=== PATIENT | male | born 1945 | race Caucasian/White ===

== ENCOUNTER 2017-07-06 11:24 | Outpatient (CLI) | payer MEDICARE, BC ==
[2017-07-06 12:06] LABS: BASOPHILS % (AUTO) 0.7 %; EOSINOPHILS % (AUTO) 0.7 %; HCT - HEMATOCRIT 41.9 % (42.0-52.0); LYMPHOCYTES # (AUTO) 1.8 10^3/uL (1.5-3.5); LYMPHOCYTES % (AUTO) 25.7 %; MEAN CORPUSCULAR HEMOGLOBIN 28.6 pg (27.0-31.0); MEAN CORPUSCULAR HGB CONC 33.5 g/dL (32.0-36.0); MEAN CORPUSCULAR VOLUME 85.4 fL (80.0-94.0); MEAN PLATELET VOLUME 7.1 fL (7.4-11.4); MONOCYTES # (AUTO) 0.6 10^3/uL (0.0-1.0); MONOCYTES % (AUTO) 8.3 %; NEUTROPHILS # (AUTO) 4.6 10^3/uL (1.5-6.6); NEUTROPHILS % (AUTO) 64.6 %; NUCLEATED RED BLOOD CELLS AUTO 0.1 /100WBC; RED BLOOD COUNT 4.91 10^6/uL (4.70-6.10); RED CELL DISTRIBUTION WIDTH 14.9 % (12.0-15.0); UNCORRECTED WHITE BLOOD COUNT 7.1 x10^3/uL; WHITE BLOOD COUNT 7.1 x10^3/uL (4.8-10.8)
[2017-07-06 12:34] LABS: ALBUMIN/GLOBULIN RATIO 1.2 (1.0-2.2); CALCIUM 9.1 mg/dL (8.5-10.3); CREATININE 1.3 mg/dL (0.6-1.2); POTASSIUM 3.9 mmol/L (3.5-5.0); TOTAL PROTEIN 7.5 g/dL (6.7-8.2)
[2017-07-06 12:36] LABS: PT - PROTHROMBIN TIME 11.5 secs (9.9-12.6)
== END 2017-07-06 11:25 | disposition home or self-care (01) ==
LOC: LAB 11:24
PROVIDERS: ATTEND Internal Medicine Cardiovascular Disease
DX: Z79.899 Other long term (current) drug therapy (principal)
CPT/HCPCS: 36415; 80053; 85025; 85610

== ENCOUNTER 2017-07-10 13:55 | Outpatient (CLI) | payer MEDICARE, BC | END 2017-07-10 13:56 | disposition home or self-care (01) | LOC: DI 13:55 | PROVIDERS: ATTEND Internal Medicine Cardiovascular Disease | DX: I50.9 Heart failure, unspecified (principal) | CPT/HCPCS: 93306 ==

== ENCOUNTER 2019-10-10 10:31 | Outpatient (CLI) | payer MEDICARE, BC ==
[2019-10-10 10:51] LABS: CALCIUM 9.2 mg/dL (8.5-10.3); CREATININE 1.3 mg/dL (0.6-1.2)
== END 2019-10-10 10:32 | disposition home or self-care (01) ==
LOC: LAB 10:31
PROVIDERS: ATTEND Internal Medicine Cardiovascular Disease
DX: I48.91 Unspecified atrial fibrillation (principal)
CPT/HCPCS: 36415; 80048

== ENCOUNTER 2019-10-21 10:31 | Outpatient (CLI) | payer MEDICARE, BC | END 2019-10-21 10:32 | disposition home or self-care (01) | LOC: DI 10:31 | PROVIDERS: ATTEND Internal Medicine Cardiovascular Disease | DX: I48.91 Unspecified atrial fibrillation (principal) | CPT/HCPCS: 93306 ==

== ENCOUNTER 2020-08-03 11:10 | Outpatient (CLI) | payer MEDICARE, BC ==
--- NOTE | 2020-08-03 15:47 | XRAY Report ---
PROCEDURE: Hip w/Pelvis 2-3V LT INDICATIONS: LEFT HIP PAIN TECHNIQUE: AP pelvis with lateral view(s) of the left hip(s). COMPARISON: None. FINDINGS: Bones: No fractures or dislocations. Pelvic ring appears intact. No suspicious bony lesions. Mild bilateral degenerative hip osteoarthritis. No erosions. Minimal periarticular osteophytes are presen t. Degenerative changes are present within the lower lumbar spine. Soft tissues: The visualized bowel gas pattern is normal. No suspicious soft tissue calcifications. IMPRESSION: Mild bilateral hip osteoarthritis. Reviewed by: Diya Hankins MD on 08/03/2020 3:45 PM PDT Approved by: Diya Hankins MD on 08/03/2020 3:45 PM PDT Station ID: [id number]
== END 2020-08-03 11:11 | disposition home or self-care (01) ==
LOC: DI 11:10
PROVIDERS: ATTEND Internal Medicine
DX: M16.0 Bilateral primary osteoarthritis of hip (principal)

== ENCOUNTER 2022-08-10 10:52 | Outpatient (CLI) | payer MEDICARE, BC ==
[2022-08-10 11:04] LABS: BILIRUBIN,URINE NEGATIVE (NEGATIVE); GLUCOSE, URINE (UA) NEGATIVE (NEGATIVE); KETONES,URINE (UA) NEGATIVE (NEGATIVE); LEUKOCYTE ESTERASE, URINE NEGATIVE (NEGATIVE); NITRITE,URINE NEGATIVE (NEGATIVE); OCCULT BLOOD,URINE LARGE (NEGATIVE); PROTEIN,URINE NEGATIVE (NEGATIVE); UROBILINOGEN,URINE 0.2 (NORMAL) E.U./dL (NORMAL)
[2022-08-10 11:16] LABS: BACTERIA,URINE Rare /HPF (None Seen); CLARITY,URINE SL. CLOUDY (CLEAR); RBC,URINE TNTC /HPF (0-5); SQUAMOUS EPITHELIAL CELL,UR RARE Squamous (<= Few); WBC,URINE 0-3 /HPF (0-3)
[2022-08-10 11:17] LABS: CREATININE 1.4 mg/dL (0.6-1.2)
== END 2022-08-10 10:53 | disposition home or self-care (01) ==
LOC: LAB 10:52
PROVIDERS: ATTEND Physician Assistant Medical
DX: R31.0 Gross hematuria (principal); Z85.51 Personal history of malignant neoplasm of bladder
CPT/HCPCS: 36415; 81001; 82565; 84520; 87086

== ENCOUNTER 2022-08-11 13:46 | Outpatient (CLI) | payer MEDICARE, BC ==
[2022-08-11] MEDS ORDERED: iohexoL-300 100 ML VIAL ONE (13:53)
[2022-08-11] MEDS ORDERED: iohexoL-300 100 ML VIAL IVP ONE (14:46)
--- NOTE | 2022-08-11 17:37 | CT Report ---
PROCEDURE: IVP INDICATIONS: HIST OF BLADDER CA CONTRAST: 140ml omni 300 TECHNIQUE: After the administration of oral and intravenous contrast, 5 mm thick sections acquired from the diap hragms to the symphysis. 5 mm thick coronal and sagittal reformats were acquired. For radiation dos e reduction, the following was used: automated exposure control, adjustment of mA and/or kV accordin g to patient size. COMPARISON: None. FINDINGS: Image quality: Excellent. Lung bases: No acute consolidations, effusions, or suspicious lung nodules. Heart is at the upper kent its of normal in size with aortic valvular calcification. Urinary system: There is a large solid mass arising from the lower pole of the left kidney and extend ing cranially to involve the lower pole collecting system and renal pelvis. It measures roughly 8.6 x 6.1 x 6.4 cm. There is no visible calyceal obstruction and no hydronephrosis in the remainder the ki dney. The ureter appears normal. The right kidney and right collecting system are normal aside from a simple right upper pole cyst. Solid organs: Liver and spleen are normal in size and enhancement. Gallbladder is partially decompr essed and there are no stones. Biliary system is non dilated. Pancreas enhances normally. No adren al nodules. Peritoneum and bowel: Bowel loops demonstrate normal wall thickness and caliber. No free fluid or a ir. Nodes and vessels: Normal caliber retroperitoneal/periaortic lymph nodes present near the level of t he left renal vein. Left renal vein is retroaortic. No retroperitoneal or mesenteric adenopathy by si ze criteria. Aorta and inferior vena cava are normal in size. Abdominal wall: Tiny fat-containing umbilical hernia.. Pelvis: No free pelvic fluid. Moderate prostatomegaly. Urinary bladder wall appears normal. Along the anterior margin of the urinary bladder wall in a transverse fashion there is tubular fat density wit h peripheral calcification. It appears iatrogenic. There are borderline bilateral inguinal lymph node s. No bulky pelvic adenopathy. Bones: No vertebral body compression fractures. Probable bone island in the left iliac crest. No sumner spicious lytic lesions to suggest osseous metastatic disease. IMPRESSION: 1. 8.6 cm left renal mass from the mid to lower pole suspicious of malignancy. 2. No significant left perirenal or retroperitoneal adenopathy. 3. No evidence of osseous metastatic disease. 4. Moderate prostatomegaly. 5. Probable postsurgical or treatment changes anterior to the otherwise normal-appearing urinary blad rob. Reviewed by: Carol Lee MD on 08/11/2022 4:36 PM DIEGO Approved by: Carol Lee MD on 08/11/2022 4:36 PM DIEGO Station ID: [id number]
== END 2022-08-11 13:47 | disposition home or self-care (01) ==
LOC: DI 13:46
PROVIDERS: ATTEND Physician Assistant Medical
DX: N28.89 Other specified disorders of kidney and ureter (principal); N40.0 Benign prostatic hyperplasia without lower urinary tract symptoms; Z85.51 Personal history of malignant neoplasm of bladder
CPT/HCPCS: 74178; Q9967

== ENCOUNTER 2022-08-12 12:19 | Outpatient (CLI) | payer MEDICARE, BC ==
--- NOTE | 2022-08-12 15:09 | Ultrasound Report ---
PROCEDURE: Duplex Ext Veins Right INDICATIONS: EDEMA TECHNIQUE: Real-time imaging, as well as color and pulse Doppler interrogation, were performed of the lower extr emity deep veins from the inguinal ligament to the popliteal fossa. COMPARISON: None. FINDINGS: The deep veins are normally compressible, and free of intraluminal thrombus. Color and pu lse Doppler demonstrate normal phasic intraluminal flow. There is normal augmentation response to di stal compression maneuver. A posterior tibial service technician vein is seen at the area of interest in the right calf with overlying s uperficial venous varicosity. IMPRESSION: 1.No sonographic evidence of deep venous thrombosis in the right lower extremity. 2.Subcutaneous varicose vein at the area of interest in the mid calf. Reviewed by: Rios Colon MD on 08/12/2022 3:08 PM PDT Approved by: Rios Colon MD on 08/12/2022 3:08 PM PDT Station ID: [id number]
== END 2022-08-12 12:20 | disposition home or self-care (01) ==
LOC: DI 12:19
PROVIDERS: ATTEND Internal Medicine
DX: R60.0 Localized edema (principal); I83.91 Asymptomatic varicose veins of right lower extremity

== ENCOUNTER 2022-09-20 09:37 | Outpatient (CLI) | payer MEDICARE, BC | END 2022-09-20 09:38 | disposition home or self-care (01) | LOC: RT 09:37 | PROVIDERS: ATTEND Internal Medicine Cardiovascular Disease | DX: I48.91 Unspecified atrial fibrillation (principal) | CPT/HCPCS: 93005 ==

== ENCOUNTER 2022-10-14 15:24 | Outpatient (CLI) | payer MEDICARE, BC ==
[2022-10-14 15:48] LABS: CALCIUM 9.2 mg/dL (8.5-10.3); CREATININE 1.2 mg/dL (0.6-1.2); POTASSIUM 4.3 mmol/L (3.5-5.0)
== END 2022-10-14 15:25 | disposition home or self-care (01) ==
LOC: LAB 15:24
PROVIDERS: ATTEND Internal Medicine Cardiovascular Disease
DX: I42.6 Alcoholic cardiomyopathy (principal)
CPT/HCPCS: 36415; 80048

== ENCOUNTER 2022-12-21 09:17 | Outpatient (CLI) | payer MEDICARE, BC | END 2022-12-21 09:18 | disposition home or self-care (01) | LOC: DI 09:17 | PROVIDERS: ATTEND Internal Medicine Cardiovascular Disease | DX: I50.9 Heart failure, unspecified (principal); I51.7 Cardiomegaly | CPT/HCPCS: 93306 ==

== ENCOUNTER 2023-01-06 14:10 | Outpatient (CLI) | payer MEDICARE, BC ==
[2023-01-06 14:27] LABS: CREATININE 1.8 mg/dL (0.6-1.2); POTASSIUM 4.6 mmol/L (3.5-5.0)
== END 2023-01-06 14:11 | disposition home or self-care (01) ==
LOC: LAB 14:10
PROVIDERS: ATTEND Internal Medicine Cardiovascular Disease
DX: I10 Essential (primary) hypertension (principal)
CPT/HCPCS: 36415; 80048

== ENCOUNTER 2023-01-20 13:27 | Outpatient (CLI) | payer MEDICARE, BC ==
[2023-01-20 13:44] LABS: BASOPHILS % (AUTO) 0.6 %; EOSINOPHILS # (AUTO) 0.1 10^3/uL (0.0-0.7); EOSINOPHILS % (AUTO) 1.9 %; HCT - HEMATOCRIT 43.2 % (42.0-52.0); HGB - HEMOGLOBIN 13.8 g/dL (14.0-18.0); LYMPHOCYTES # (AUTO) 0.7 10^3/uL (1.5-3.5); LYMPHOCYTES % (AUTO) 14.2 %; MEAN CORPUSCULAR HEMOGLOBIN 28.2 pg (27.0-31.0); MEAN CORPUSCULAR HGB CONC 31.9 g/dL (32.0-36.0); MEAN CORPUSCULAR VOLUME 88.2 fL (80.0-94.0); MEAN PLATELET VOLUME 8.9 fL (7.4-11.4); MONOCYTES # (AUTO) 0.5 10^3/uL (0.0-1.0); MONOCYTES % (AUTO) 9.9 %; NEUTROPHILS # (AUTO) 3.5 10^3/uL (1.5-6.6); PLT - PLATELET COUNT 240 10^3/uL (130-450); RED CELL DISTRIBUTION WIDTH 14.6 % (12.0-15.0); WHITE BLOOD COUNT 4.7 x10^3/uL (4.8-10.8)
[2023-01-20 13:50] LABS: ALBUMIN 2.3 g/dL (3.2-5.5); ALBUMIN/GLOBULIN RATIO 0.9 (1.0-2.2); BILIRUBIN,TOTAL 0.7 mg/dL (0.2-1.0); CALCIUM 8.3 mg/dL (8.5-10.3); CREATININE 1.4 mg/dL (0.6-1.2); PHOSPHORUS 3.9 mg/dL (2.5-4.6); POTASSIUM 4.6 mmol/L (3.5-5.0); TOTAL PROTEIN 4.9 g/dL (6.7-8.2)
== END 2023-01-20 13:28 | disposition home or self-care (01) ==
LOC: LAB.R 13:27
PROVIDERS: ATTEND Internal Medicine
DX: E43 Unspecified severe protein-calorie malnutrition (principal); J94.0 Chylous effusion; I89.8 Other specified noninfective disorders of lymphatic vessels and lymph nodes; C64.2 Malignant neoplasm of left kidney, except renal pelvis; T81.89XA Other complications of procedures, not elsewhere classified, initial encounter; Z79.899 Other long term (current) drug therapy
CPT/HCPCS: 80053; 83735; 84100; 85025

== ENCOUNTER 2023-01-20 14:37 | Emergency (ER) | payer MEDICARE, BC ==
--- NOTE | 2023-01-20 15:35 | ED Physician Documentation ---
History of Present Illness - Stated complaint Stated Complaint: SWOLLEN ARM - Chief complaint Chief Complaint: General - History obtained from History obtained from: Patient, Family - History of Present Illness Pain level max: 0 Pain level now: 0 - Additonal information Additional information: 77-year-old male presents to the emergency department stating he has had a PICC line in place for the past 1 week. He states that he went home from the [facility] last night. He has a drain in his right lower abdomen. He states that the infusion nurse came to start his TPN today and his right hand was swollen, they called his doctor and were sent here for ultrasound to rule out DVT. The swelling in the hand has now resolved. Patient's states that yesterday his forearm was swollen but that has resolved as well. Patient is currently asymptomatic. No fevers. No chills. No pain. The PICC line has been used for the past 1 week with no issues Review of Systems Constitutional: denies: Fever, Chills GI: denies: Vomiting, Diarrhea Skin: denies: Rash Musculoskeletal: denies: Neck pain, Back pain Neurologic: denies: Headache PD PAST MEDICAL HISTORY - Past Medical History Cardiovascular: Congestive heart failure, Hypertension, Atrial flutter Respiratory: Sleep apnea, CPAP use Neuro: None Endocrine/Autoimmune: None GI: GERD, Ulcers : Benign prostate hypertrophy, Nocturia HEENT: Chronic vision loss Psych: Depression, Anxiety Musculoskeletal: Osteoarthritis Derm: Rosacea - Past Surgical History General: Gastric surgery Ortho: Knee replacement HEENT: Cataracts - Present Medications Home Medications: Ambulatory Orders Medication Instructions Recorded Confirmed Multivitamin [Multivitamins] 1 tab PO DAILY 02/18/16 01/20/23 Tamsulosin [Flomax] 0.4 mg PO HS 02/18/16 01/20/23 [id number] CD [Cardizem Cd] 360 mg PO DAILY PM 02/18/16 01/20/23 Cholecalciferol [Vitamin D3] 25 mcg PO DAILY 12/12/22 01/20/23 Rivaroxaban [Xarelto] 20 mg PO HS 12/12/22 01/20/23 Furosemide [Lasix] 1 tab PO DAILY PRN 12/14/22 01/20/23 Spironolactone [Aldactone] 25 mg PO DAILY 01/20/23 01/20/23 lisinopriL [Zestril] 5 mg PO DAILY 01/20/23 01/20/23 - Allergies Allergies/Adverse Reactions: Allergies Allergy/AdvReac Type Severity Reaction Status Date / Time No Known Drug Allergies Allergy Verified 01/20/23 15:36 - Social History Does the pt smoke?: Yes Smoking Status: Former smoker Does the pt drink ETOH?: Yes Does the pt have substance abuse?: No - Immunizations Immunizations are current?: No Immunizations: TDAP >10years/unknown - POLST POLST Status: Full Code PD ED PE NORMAL - Vitals Vital signs reviewed: Yes - General General: Alert and oriented X 3, No acute distress - HEENT HEENT: Moist mucous membranes - Neck Neck: Supple, no meningeal sign - Cardiac Cardiac: RRR, Strong equal pulses - Respiratory Respiratory: No respiratory distress, Clear bilaterally - Abdomen Abdomen: Soft, Non tender, Non distended, Other (drain in R L) - Derm Derm: Warm and dry - Extremities Extremities: Other (R UE - No visible swelling. No difference in temperature between the right and left upper extremities. PICC line is in place. No signs of infection. Dressing is clean. Full range of motion of the arm without pain. Neurovascular intact.) - Neuro Neuro: Alert and oriented X 3 - Psych Psych: Normal mood, Normal affect Results - Vitals Vitals: Vital Signs - 24 hr 01/20/23 01/20/23 01/20/23 14:48 15:03 15:35 Temperature 35.7 C L Heart Rate 88 70 66 Respiratory 16 13 14 Rate Blood Pressure 75/53 L 94/56 L 79/48 L O2 Saturation 100 100 97 01/20/23 01/20/23 16:04 16:29 Temperature Heart Rate 62 62 Respiratory 12 16 Rate Blood Pressure 100/49 L 100/49 L O2 Saturation 100 100 Oxygen O2 Source Room air - Rads (name of study) Duplex ultrasound right upper extremity Relevant Findings:: Final report received, See rad report PD Medical Decision Making - ED course Complexity details: reviewed results, re-evaluated patient, considered differential, d/w patient, d/w family ED course: 77-year-old male has a nonocclusive thrombus in the right upper extremity around the PICC line. He had been off Xarelto for the surgery, restarted at last night. We will have him continue Xarelto and have him follow-up with his doctor for further care. No chest pain. No shortness of breath. No evidence of infection. Patient counseled regarding signs and symptoms for which I believe and urgent re-evaluation would be necessary. Patient with good understanding of and agreement to plan and is comfortable going home at this time This document was made in part using voice recognition software. While efforts are made to proofread this document, sound alike and grammatical errors may occur. Patient is hypotensive, he states this is not unusual for him since the surgery. He is asymptomatic with this. He will restart his TPN when he gets home. Departure - Departure Disposition: , Self Care Clinical Impression: Non-occlusive thrombus Condition: Good Instructions: ED DVT Follow-Up: Maddison Tee MD [Provider Admit Priv/Credential] - Within 1 week Comments: On your ultrasound there is a clot around the PICC line, but there is still blood flow going around the area. As you have restarted your anticoagulation last night, we will have you continue your anticoagulation and follow-up with your doctor for further care. You can continue to use the PICC line. Please return if you worsen. Discharge Date/Time: 01/20/23 16:31
--- OUTSIDE RECORDS SUMMARY | 2023-01-20 15:36 | EXTERNAL MEDICAL SUMMARY RPT | Continuity of Care Document ---
:1945 Author Organization [facility] Address [address] [place] [address] Phone Allergies No information. Encounters No information. Functional Status No information. Immunizations No information. Medications No information. Problems date description facility 2022-12-10 12:36 Other specified disorders of [facility] Procedures No information. Results/Labs test date author facility value unit interpret ation Result panel 1 (unknown) (no date) (unknown) (unknown) 509 mg/dl 14552 -3 (unknown) (no date) (unknown) (unknown) 509 mg/dl (unkn own) Result panel 2 (unknown) (no date) (unknown) (unknown) (no value) (units (un known) unknown) (unknown) (no date) (unknown) (unknown) No WBC seen (units (u nknown) unknown) (unknown) (no date) (unknown) (unknown) No cells or (units (u nknown) organisms seen unknown) (unknown) (no date) (unknown) (unknown) No cells or (units (u nknown) organisms seen unknown) Result panel 3 (unknown) (no date) (unknown) (unknown) (no value) (units (un known) unknown) (unknown) (no date) (unknown) (unknown) No WBC seen (units (u nknown) unknown) (unknown) (no date) (unknown) (unknown) No cells or (units (u nknown) organisms seen unknown) (unknown) (no date) (unknown) (unknown) No cells or (units (u nknown) organisms seen unknown) Result panel 4 (unknown) (no date) (unknown) (unknown) (no value) (units (un known) unknown) (unknown) (no date) (unknown) (unknown) No WBC seen (units (u nknown) unknown) (unknown) (no date) (unknown) (unknown) No cells or (units (u nknown) organisms seen unknown) (unknown) (no date) (unknown) (unknown) No cells or (units (u nknown) organisms seen unknown) (unknown) (no date) (unknown) (unknown) No growth. (units (un known) unknown) Result panel 5 (unknown) (no (unknown) (unknown) (no value) (units (unk nown) date) unknown) (unknown) (no (unknown) (unknown) DIDiphtheroids (units (unknown) date) unknown) (unknown) (no (unknown) (unknown) No Further (units (unk nown) date) Workup unknown) (unknown) (no (unknown) (unknown) No WBC seen (units (un known) date) unknown) (unknown) (no (unknown) (unknown) No cells or (units (un known) date) organisms seen unknown) (unknown) (no (unknown) (unknown) No cells or (units (un known) date) organisms seen unknown) (unknown) (no (unknown) (unknown) SCANT (units (unkno wn) date) unknown) Result panel 6 (unknown) (no (unknown) (unknown) (no value) (units (unk nown) date) unknown) (unknown) (no (unknown) (unknown) DIDiphtheroids (units (unknown) date) unknown) (unknown) (no (unknown) (unknown) No Further (units (unk nown) date) Workup unknown) (unknown) (no (unknown) (unknown) No WBC seen (units (un known) date) unknown) (unknown) (no (unknown) (unknown) No cells or (units (un known) date) organisms seen unknown) (unknown) (no (unknown) (unknown) No cells or (units (un known) date) organisms seen unknown) (unknown) (no (unknown) (unknown) No growth. (units (unk nown) date) unknown) (unknown) (no (unknown) (unknown) SCANT (units (unkno wn) date) unknown) Result panel 7 (unknown) (no (unknown) (unknown) (no value) (units (unk nown) date) unknown) (unknown) (no (unknown) (unknown) DIDiphtheroids (units (unknown) date) unknown) (unknown) (no (unknown) (unknown) No Further (units (unk nown) date) Workup unknown) (unknown) (no (unknown) (unknown) No WBC seen (units (un known) date) unknown) (unknown) (no (unknown) (unknown) No cells or (units (un known) date) organisms seen unknown) (unknown) (no (unknown) (unknown) No cells or (units (un known) date) organisms seen unknown) (unknown) (no (unknown) (unknown) No growth. (units (unk nown) date) unknown) (unknown) (no (unknown) (unknown) SCANT (units (unkno wn) date) unknown) Result panel 8 (unknown) (no date) (unknown) (unknown) 509 (units unknown) (unknown) (unknown) (no date) (unknown) (unknown) 509 (units unknown) (unknown) Social History No information. Vital Signs No information.
[2023-01-20 16:05] VITALS: BP 100/49
--- NOTE | 2023-01-20 16:43 | Ultrasound Report ---
PROCEDURE: Duplex Ext Veins Right INDICATIONS: RUE swelling with PICC line TECHNIQUE: Real-time imaging, as well as color and pulse Doppler interrogation, were performed of the upper extr emity deep veins. COMPARISON: None. FINDINGS: With a right upper extremity, nonocclusive thrombus can be seen involving the right subclav brenda vein as well as the basilic vein. The superficial veins demonstrate no thrombus. IMPRESSION: Nonocclusive deep venous thrombosis seen involving the right subclavian vein and the bas ilic vein, along the length of the PICC line. Note: Concordant preliminary findings given by the machine accountant upon the completion of the examination to Dr. Argueta at 4:00 PM on 01/20/2023. Reviewed by: Carlton Narayan MD on 01/20/2023 3:42 PM DIEGO Approved by: Carlton Narayan MD on 01/20/2023 3:42 PM DIEGO Station ID: [id number]
== END 2023-01-20 16:31 | disposition home or self-care (01) ==
LOC: ED 14:37
DX: I82.B11 Acute embolism and thrombosis of right subclavian vein (principal); I95.9 Hypotension, unspecified; Z87.891 Personal history of nicotine dependence; Z95.9 Presence of cardiac and vascular implant and graft, unspecified; E43 Unspecified severe protein-calorie malnutrition; J94.0 Chylous effusion; I89.8 Other specified noninfective disorders of lymphatic vessels and lymph nodes; C64.2 Malignant neoplasm of left kidney, except renal pelvis; T81.89XA Other complications of procedures, not elsewhere classified, initial encounter; Z79.899 Other long term (current) drug therapy
CPT/HCPCS: 80053; 83735; 84100; 85025; 99283; 99284

== ENCOUNTER 2023-02-20 15:47 | Outpatient (CLI) | payer MEDICARE, BC ==
[2023-02-20 16:09] LABS: BASOPHILS % (AUTO) 0.3 %; EOSINOPHILS # (AUTO) 0.1 10^3/uL (0.0-0.7); EOSINOPHILS % (AUTO) 1.4 %; HCT - HEMATOCRIT 37.9 % (42.0-52.0); HGB - HEMOGLOBIN 12.4 g/dL (14.0-18.0); LYMPHOCYTES # (AUTO) 0.7 10^3/uL (1.5-3.5); LYMPHOCYTES % (AUTO) 10.7 %; MEAN CORPUSCULAR HEMOGLOBIN 28.4 pg (27.0-31.0); MEAN CORPUSCULAR HGB CONC 32.7 g/dL (32.0-36.0); MEAN CORPUSCULAR VOLUME 86.9 fL (80.0-94.0); MEAN PLATELET VOLUME 9.1 fL (7.4-11.4); MONOCYTES # (AUTO) 0.6 10^3/uL (0.0-1.0); MONOCYTES % (AUTO) 8.2 %; NEUTROPHILS # (AUTO) 5.4 10^3/uL (1.5-6.6); NEUTROPHILS % (AUTO) 78.1 %; PLT - PLATELET COUNT 306 10^3/uL (130-450); RED BLOOD COUNT 4.36 10^6/uL (4.70-6.10); RED CELL DISTRIBUTION WIDTH 15.2 % (12.0-15.0); WHITE BLOOD COUNT 6.9 x10^3/uL (4.8-10.8)
[2023-02-20 16:14] LABS: ALBUMIN 1.9 g/dL (3.2-5.5); ALBUMIN/GLOBULIN RATIO 0.7 (1.0-2.2); BILIRUBIN,TOTAL 0.6 mg/dL (0.2-1.0); CALCIUM 7.8 mg/dL (8.5-10.3); CREATININE 1.7 mg/dL (0.6-1.2); CRP - C-REACTIVE PROTEIN 3.6 mg/dL (0-1.0); MAGNESIUM 1.8 mg/dL (1.7-2.8); PHOSPHORUS 3.3 mg/dL (2.5-4.6); POTASSIUM 4.2 mmol/L (3.5-5.0); TOTAL PROTEIN 4.8 g/dL (6.7-8.2)
== END 2023-02-20 15:48 | disposition home or self-care (01) ==
LOC: LAB.R 15:47
PROVIDERS: ATTEND Internal Medicine
DX: E43 Unspecified severe protein-calorie malnutrition (principal); J94.0 Chylous effusion; I89.0 Lymphedema, not elsewhere classified; C64.2 Malignant neoplasm of left kidney, except renal pelvis; C67.9 Malignant neoplasm of bladder, unspecified; T81.89XA Other complications of procedures, not elsewhere classified, initial encounter; Z79.899 Other long term (current) drug therapy
CPT/HCPCS: 80053; 83735; 84100; 85025; 86140

== ENCOUNTER 2023-02-27 12:23 | Outpatient (CLI) | payer MEDICARE, BC ==
[2023-02-27 13:04] LABS: BUN - BLOOD UREA NITROGEN 10 mg/dL (6-20); CALCIUM 8.3 mg/dL (8.5-10.3); CARBON DIOXIDE - CO2 25 mmol/L (21-32); CHLORIDE 102 mmol/L (101-111); CREATININE 1.7 mg/dL (0.6-1.2); GFR - MDRD 39 (>89); GLUCOSE 93 mg/dL (70-100); IONIZED CALCIUM IF INDICATED YES; POTASSIUM 3.6 mmol/L (3.5-5.0); SODIUM 136 mmol/L (135-145)
[2023-02-27 13:08] LABS: CALCIUM, IONIZED 1.1 mmol/L (1.15-1.33); VBG PH 7.427 (7.31-7.41)
== END 2023-02-27 12:24 | disposition home or self-care (01) ==
LOC: LAB 12:23
PROVIDERS: ATTEND Urology
DX: I50.20 Unspecified systolic (congestive) heart failure (principal); L76.82 Other postprocedural complications of skin and subcutaneous tissue
CPT/HCPCS: 36415; 80048; 82330

== ENCOUNTER 2023-06-22 09:30 | Outpatient (CLI) | payer MEDICARE, BC | END 2023-06-22 09:31 | disposition home or self-care (01) | LOC: DI 09:30 | PROVIDERS: ATTEND Internal Medicine | DX: I50.9 Heart failure, unspecified (principal); I35.0 Nonrheumatic aortic (valve) stenosis; I51.7 Cardiomegaly | CPT/HCPCS: 93306 ==

== ENCOUNTER 2023-10-12 16:46 | Outpatient (CLI) | payer MEDICARE, BC ==
--- NOTE | 2023-10-12 18:55 | Ultrasound Report ---
PROCEDURE: Duplex Ext Veins Left INDICATIONS: LOCALIZED EDEMA TECHNIQUE: Real-time imaging, as well as color and pulse Doppler interrogation, were performed of the lower extr emity deep veins from the inguinal ligament to the popliteal fossa. Attempted visualization of the ca lf veins was performed. COMPARISON: None. FINDINGS: The deep veins are normally compressible, and free of intraluminal thrombus. Color and pu lse Doppler demonstrate normal phasic intraluminal flow. There is normal augmentation response to di stal compression maneuver. Subcutaneous edema in the posterior calf is noted. IMPRESSION: 1. No DVT in the left lower extremity. 2. Preliminary results given by the soft work cigar machine operator to the ordering provider immediately following the st udy. Reviewed by: Carol Lee MD on 10/12/2023 6:53 PM PST Approved by: Carol Lee MD on 10/12/2023 6:53 PM PST Station ID: [id number]
== END 2023-10-12 16:47 | disposition home or self-care (01) ==
LOC: DI 16:46
PROVIDERS: ATTEND Internal Medicine
DX: R60.0 Localized edema (principal)

== ENCOUNTER 2024-03-12 07:50 | Outpatient (CLI) | payer MEDICARE, BC ==
[2024-03-12] MEDS ORDERED: iohexoL-300 100 ML VIAL ONE (07:55)
[2024-03-12] MEDS ORDERED: iohexoL-300 150 ML BOTTLE ONE (08:26)
[2024-03-12] MEDS: iohexoL-300 150 ML BOTTLE IVP ONE (14:55)
--- NOTE | 2024-03-12 22:25 | CT Report ---
PROCEDURE: IVP INDICATIONS: BLADDER CA, RENAL CA CONTRAST: Omni 300 140ml TECHNIQUE: A [address] of the abdomen and pelvis was performed. Non-contrast and contrast images were recorded and evaluated at appropriate window settings. Images were recorded and evaluated at appropriate windo w settings. Reformats: coronal and sagittal. For radiation dose reduction, the following was used: au tomated exposure control, adjustment of mA and/or kV according to patient size. COMPARISON: CT abdomen pelvis without contrast 12/12/2022, CT IVP 08/11/2022. FINDINGS: Image quality: Diagnostic. Lower chest: Unremarkable. Liver: No solid mass. Gallbladder: No radiopaque stones or wall thickening. Biliary tree: No intrahepatic or extrahepatic dilation, accounting for age. Spleen: No splenomegaly. Pancreas: No pancreatic ductal dilation. Adrenals: Left adrenal gland is surgically absent. No adrenal nodule. Kidneys and ureters: Status post left nephrectomy. No suspicious. No hydronephrosis or nephrolithiasi s on pre-contrast images. No solid masses or complex cysts which require follow up. Stable right exo phytic simple appearing cyst. Subcentimeter right renal hypodensities too small to characterize, prob able cysts. The opacified right renal calyces and right ureter appear normal, without filling defect. Stomach, bowel and peritoneum: No bowel distension. No pathologic free fluid. Normal caliber appendix . Abdominal Lymph nodes: No central or retroperitoneal adenopathy. Vessels: Unremarkable. Patent portal vein. Aortobiiliac atherosclerotic calcifications. Reproductive organs: Prostatomegaly. Bladder: No abnormal wall thickening, accounting for underdistention. No calcified bladder stones. No filling defect within the partially opacified bladder. Pelvic Lymph nodes: Unremarkable. Bones: No aggressive osseous abnormality. Other: None. IMPRESSION: Status post left radical nephrectomy. No evidence of disease recurrence. No ]nephrolithiasis or filling defects within the opacified right renal collecting system or ureter. Bladder is incompletely distended with contrast, limiting evaluation. Prostatomegaly. Reviewed by: Elyssa Reno MD, PhD on 03/12/2024 9:23 PM DIEGO Approved by: Elyssa Reno MD, PhD on 03/12/2024 9:23 PM AKCLAUDIA Station ID: [id number]
== END 2024-03-12 07:51 | disposition home or self-care (01) ==
LOC: DI 07:50
PROVIDERS: ATTEND Urology
DX: C67.9 Malignant neoplasm of bladder, unspecified (principal); C64.2 Malignant neoplasm of left kidney, except renal pelvis; Z90.5 Acquired absence of kidney; N40.0 Benign prostatic hyperplasia without lower urinary tract symptoms

== ENCOUNTER 2024-03-19 13:49 | Outpatient (CLI) | payer MEDICARE, BC ==
--- NOTE | 2024-03-19 16:23 | XRAY Report ---
PROCEDURE: Chest 2V INDICATIONS: BLADDER AND RENAL CA TECHNIQUE: 2 views of the chest were acquired. COMPARISON: 05/12/2013 FINDINGS: Surgical changes and devices: None. Lungs and pleura: No pleural effusions or pneumothorax. Lungs are clear. Mediastinum: Mediastinal contours appear normal. Heart size is normal. Bones and chest wall: No suspicious bony lesions. Overlying soft tissues appear unremarkable. IMPRESSION: No acute cardiopulmonary process. Reviewed by: Carol Lee MD on 03/19/2024 4:21 PM PDT Approved by: Carol Lee MD on 03/19/2024 4:21 PM PDT Station ID: [id number]
== END 2024-03-19 13:50 | disposition home or self-care (01) ==
LOC: DI 13:49
PROVIDERS: ATTEND Urology
DX: C67.9 Malignant neoplasm of bladder, unspecified (principal); C64.2 Malignant neoplasm of left kidney, except renal pelvis

== ENCOUNTER 2024-04-26 11:26 | Outpatient (CLI) | payer MEDICARE, BC ==
[2024-04-26 12:33] LABS: ALKALINE PHOSPHATASE 68 IU/L (42-121); ALT ALANINE AMINOTRANSFERASE 12 IU/L (10-60); AST ASPARTATE AMINOTRANSFERASE 13 IU/L (10-42); BILIRUBIN,DIRECT < 0.10 mg/dL (0.03-0.18); BILIRUBIN,TOTAL 0.4 mg/dL (0.2-1.0); BUN - BLOOD UREA NITROGEN 11 mg/dL (6-20); CREATININE 1.6 mg/dL (0.6-1.3); GFR - MDRD 42 (>89); TOTAL PROTEIN 7.1 g/dL (6.4-8.9)
== END 2024-04-26 11:27 | disposition home or self-care (01) ==
LOC: LAB 11:26
PROVIDERS: ATTEND Physician Assistant Medical
DX: B35.1 Tinea unguium (principal)
CPT/HCPCS: 36415; 80076; 82565; 84520